=== PATIENT | female | born 1940 ===

== ENCOUNTER 2020-06-20 20:03 | Outpatient (CLI) | payer OTHER | END 2020-06-20 20:04 | disposition home or self-care (01) | LOC: PPH VACUNA 20:03 | PROVIDERS: ATTEND Emergency Medicine Pediatric Emergency Medicine | DX: Z23 Encounter for immunization (principal) ==

== ENCOUNTER 2020-07-11 05:26 | Outpatient (CLI) | payer OTHER | END 2020-07-11 15:27 | disposition home or self-care (01) | LOC: PPH VACUNA 05:26 | PROVIDERS: ATTEND Emergency Medicine Pediatric Emergency Medicine | DX: Z23 Encounter for immunization (principal) ==

== ENCOUNTER 2021-02-09 08:00 | Outpatient (CLI) | payer OTHER | END 2021-02-09 08:30 | disposition home or self-care (01) | LOC: PPH VACUNA 08:00 | PROVIDERS: ATTEND Emergency Medicine Pediatric Emergency Medicine | DX: Z23 Encounter for immunization (principal) ==